=== PATIENT | male | born 1945 | race Caucasian/White ===

== ENCOUNTER → 2019-10-17 14:29 | Outpatient (CLI) | payer MEDICARE, OTHER, SELFPAY ==
--- NOTE | 2019-10-17 14:38 | DI.CT.S_ITS ---
PROCEDURE: CT SINUS SCREEN WO CON INDICATIONS: Other chronic sinusitis TECHNIQUE: Noncontrast 3.0 mm axial images acquired from the frontal sinuses to the mid-sella, with coronal and sagittal reformats. For radiation dose reduction, the following was used: automated exposure control, adjustment of mA and/or kV according to patient size. COMPARISON: None. FINDINGS: Image quality: Excellent. Diffuse bilateral ethmoid sinus mucosal thickening. Sphenoid sinuses appear clear. [id number] left maxillary sinus disease. There is minimal fluid within the right maxillary antrum, and mild right maxillary sinus disease. Frontal sinuses appear clear Mastoid air cells appear clear. Ostiomeatal Complexes: Ostiomeatal complexes are patent. No Wendy cells. Miscellaneous: Visualized intra-orbital contents are normal. No lore bullosa or paradoxical turbinate curvature. There is a small mucous retention cyst seen within the roof of the right maxillary antrum near the ostiomeatal complex image 22/4 Mild leftward nasal septal deviation. Probably chronic bilateral nasal bone fractures IMPRESSION: Diffuse bilateral ethmoid and maxillary sinus disease as detailed above Bilateral nasal bone fractures, likely chronic Dictated by: Jd Hopper M.D. on 10/17/2019 at 15:45 Approved by: Jd Hopper M.D. on 10/17/2019 at 15:49
== END ==
PROVIDERS: Referring Provider Otolaryngology; Visit Provider Otolaryngology
DX: J32.8 Other chronic sinusitis (principal); S02.2XXA Fracture of nasal bones, initial encounter for closed fracture; J34.2 Deviated nasal septum
CPT/HCPCS: 70486

== ENCOUNTER 2021-11-09 22:04 | Emergency (ER) | payer MEDICARE, OTHER, SELFPAY ==
[2021-11-09] VITALS (7 sets, daily range): BP systolic 148–195; BP diastolic 67–91; PULSE 61–83; RESP 15–19; TEMP 36.7; O2SAT 92–95; BMI 28.8
--- NOTE | 2021-11-09 22:18 | DI.RAD.S_ITS ---
PROCEDURE: XR CHEST 2V INDICATIONS: SOB TECHNIQUE: 2 views of the chest were acquired. COMPARISON: None. FINDINGS: Surgical changes and devices: None. Lungs and pleura: Lungs are clear. No pleural effusions or pneumothorax. Mediastinum: Mediastinal contours are normal. Heart size is normal. Bones and chest wall: No suspicious bony abnormalities. Soft tissues appear unremarkable. IMPRESSION: No acute pulmonary process. Dictated by: Anika Chairez M.D. on 11/09/2021 at 23:30 Approved by: Anika Chairez M.D. on 11/09/2021 at 23:31
--- NOTE | 2021-11-09 22:23 | ED_ITS ---
HPI - Chest Pain General Chief Complaint: Chest Pain Stated Complaint: pain in left chest area, sylvain during cough Time Seen by Provider: 11/09/21 22:06 Source: patient Mode of arrival: Ambulatory Limitations: no limitations History of Present Illness HPI narrative: 76M former smoker with a history of pneumonia presents with the chief complaint of a crampy and persistent left anterior chest pain that started this morning. This pain is provoked by cough and movement of his torso as well as deep breath. He denies any provocation by exertion or ambulation. He denies nausea, vomiting, or SOB. He has had no fever or chills. He states that he has a chronic cough and this is no more intense or frequent than normal. He always spits up whitish sputum and denies any blood, brown or off colored appearance to his sputum currently. His pain does not radiate and he noticed it rather suddenly this morning when he coughed. He states it is a 5/ currently Related Data Home Medications Medication Instructions Recorded Confirmed CA PANTOTHENATE/FOLIC ACID/VIT 1 tab PO QDAY #0 10/27/12 (MULTIVITAMIN) Fish Oil 1,000 mg PO QDAY #0 10/27/12 Terazosin HCl (TERAZOSIN 5 mg PO QDAY #0 10/27/12 HYDROCHLORIDE) dapsone 25 mg tablet 25 mg NG #0 10/27/12 Previous Rx's Medication Instructions Recorded albuterol sulfate 90 mcg/actuation 1 puff INH QID #8 gm 12/13/16 aerosol inhaler (Ventolin HFA) doxycycline hyclate 100 mg tablet 100 mg PO BID #28 tab 12/13/16 amlodipine 5 mg tablet 5 mg PO DAILY #30 tab 11/10/21 lidocaine 5 % topical patch 1 patch TOPICAL DAILY PRN #15 ea 11/10/21 (Lidoderm) Allergies Allergy/AdvReac Type Severity Reaction Status Date / Time No Known Drug Allergies Allergy Verified 11/09/21 22:23 Review of Systems Review of Systems Narrative: GENERAL: Denies chills, fatigue, malaise, fever, sweats. HEENT: Denies sinus pain, ear pain, sore throat, difficulty swallowing, dizziness. RESPIRATORY: See HPI CARDIOVASCULAR: See HPI GASTROINTESTINAL: Denies nausea, vomiting, abdominal pain, diarrhea, constipation, melena. : Denies dysuria, frequency, incontinence, hematuria, urinary retention. MUSCULOSKELETAL: denies weakness, joint pain, or bony pain SKIN: Denies rash, skin lesions, or other NEUROLOGIC: Denies weakness, headache, numbness, change in speech, confusion, seizures, incoordination. PSYCHIATRIC: No concerning psychosocial issues. 12 point review of systems is negative except for those stated above Patient History Social History Smoking Status: Former smoker Smoking Status: Former smoker alcohol intake frequency: 0-2 drinks per day Substance Use Type: does not use Exam Narrative Exam Narrative: GENERAL: [76 year old patient appears stated age. Well-developed patient, in mild distress. HEAD: Atraumatic. Normocephalic. EYES: Pupils equal round and reactive. Extraocular motions intact. No scleral icterus. No injection or drainage. ENT: Nose without bleeding, purulent drainage. Throat without erythema, tonsillar hypertrophy or exudate. Airway patent. NECK: Trachea midline. Non tender CARDIOVASCULAR: Regular rate and rhythm without murmurs, gallops, or rubs. No obvious provocation on palpation of chest wall RESPIRATORY: Decreased breath sounds bilaterally with prolonged expiratory phase, no wheezes, rales or rhonchi GASTROINTESTINAL: Abdomen soft, non-tender, nondistended. EXTREMITIES: No edema or joint tenderness. BACK: Nontender without deformity or crepitance. No flank tenderness. NEURO: AOx3. SKIN: No rash or erythema of visible areas Initial Vital Signs Initial Vital Signs: Vital Signs Temperature 98.0 F 11/09/21 22:10 Pulse Rate 72 11/09/21 22:10 Respiratory Rate 17 11/09/21 22:10 Blood Pressure 195/91 H 11/09/21 22:10 Pulse Oximetry 92 11/09/21 22:10 Course Orders Ordered: ED Orders 11/09/21 22:15 C-Reactive Protein Quant Stat Complete Blood Count AUTO DIFF Stat Comprehensive Metabolic Panel Stat Erythrocyte Sedimentation Rate Stat Lipase Stat Magnesium Stat NT-proBNP (BNP-Adult 18+) Stat Prothrombin Time INR Stat Troponin & CK Cardiac Panel Stat 11/09/21 22:18 XR chest 2V Stat 11/09/21 22:20 COVID19 -Nasal swab/Pre-Proc Stat 11/10/21 00:00 D Dimer Stat EKG-12 Lead Stat 11/10/21 00:10 Trop I [Troponin I] Stat Nitroglycerin (Nitroglycerin 0.4 Mg Sl Tab) 0.4 mg SL [id number] PRN PRN Reason: Chest Pain Last Admin: 11/09/21 22:46 Dose: 0.4 mg Documented by: ATAYLOR Discontinued Medications Ketorolac Tromethamine (Ketorolac 30 Mg/Ml Vial) 10 mg IV NOW ONE Stop: 11/09/21 23:04 Last Admin: 11/09/21 23:12 Dose: 10 mg Documented by: ALLYSON Lidocaine (Lidocaine Patch 1 Each Adh..Patch) 1 each TOP NOW ONE Stop: 11/10/21 00:04 Last Admin: 11/10/21 00:08 Dose: 1 each Documented by: KAEL Reevaluation(s) Reevaluation #1: patient given NG sublingual, no change in character or severity of chest pain, however BP is down to 160s. Vital Signs Vital signs: Vital Signs - 8 hr 11/09/21 22:10 11/09/21 22:30 11/09/21 22:41 Temperature 98.0 F Pulse Rate 83 69 75 Respiratory Rate 17 15 16 Blood Pressure 195/91 H 191/81 H 190/78 H Pulse Oximetry 95 94 95 11/09/21 22:52 11/09/21 23:00 11/09/21 23:14 Temperature Pulse Rate 69 69 64 Respiratory Rate 18 19 16 Blood Pressure 165/70 H 174/75 H Pulse Oximetry 93 93 92 11/09/21 23:30 Temperature Pulse Rate 61 Respiratory Rate 15 Blood Pressure 148/67 H Pulse Oximetry 94 MDM - Chest Pain Lab Data Result diagrams: 11/09/21 22:15 11/09/21 22:15 Labs: Lab Results 11/09/21 11/09/21 11/09/21 Range/Units 22:15 22:15 22:15 WBC 7.6 (4.5-11.0) X10^3/uL RBC 5.40 (4.5-5.9) X10^6/uL Hgb 16.5 (13.5-17.5) g/dL Hct 47.6 (41-53) % MCV 88.1 (80-100) fL MCH 30.6 (26-34) PG MCHC 34.7 (30-36) % RDW 13.5 (11.6-14.8) % Plt Count 255 (150-400) X10^3/uL Neut % (Auto) 62.5 (50-75) % Lymph % (Auto) 20.5 L (25-40) % [facility] % (Auto) 10.1 (3-14) % Eos % (Auto) 5.8 H (2-4) % Baso % (Auto) 1.1 (0-2) % Neut # (Auto) 4700 (5625-3113) /uL Lymph # (Auto) 1600 (7474-5353) /uL [facility] # (Auto) 800 (0-900) /uL Eos # (Auto) 400 (0-450) /uL Baso # (Auto) 100 (0-100) /uL ESR (0-15) MM/HR PT 11.6 (10.1-12.7) SECONDS INR 1.0 (0.9-1.3) D-Dimer (<230) ng/mL Sodium 137 (137-145) mmol/L Potassium 4.2 (3.4-5.1) mmol/L Chloride 107 (98-107) mmol/L Carbon Dioxide 22 (22-32) mmol/L BUN 19 (9-20) mg/dL Creatinine 1.23 (0.66-1.25) mg/dL Estimated GFR 56.9 L (>60) mL/min BUN/Creatinine Ratio 15.4 (6-22) Glucose 128 H (80-110) mg/dL Calcium 9.3 (8.4-10.2) mg/dL Magnesium 2.1 (1.6-2.3) mg/dL Total Bilirubin 0.5 (0.2-1.3) mg/dL AST 35 (17-59) IU/L ALT 27 (<50) IU/L Alkaline Phosphatase 79 (38-126) U/L Total Creatine Kinase 85 (55-170) U/L CK-MB (CK-2) TNP CK-MB (CK-2) Rel Index TNP Troponin I < 0.012 (0.01-0.034) ng/mL C-Reactive Protein (<1.0) mg/dL NT-Pro-B Natriuret Pep 28 (<450) pg/mL Total Protein 7.8 (6.3-8.2) g/dL Albumin 4.4 (3.5-5.0) g/dL Globulin 3.4 (1.7-4.1) g/dL Albumin/Globulin Ratio 1.3 (1.0-2.8) Lipase 61 (23-300) U/L SARS-CoV-2 (PCR) (Negative) 11/09/21 11/09/21 11/09/21 Range/Units 22:15 22:15 22:15 WBC (4.5-11.0) X10^3/uL RBC (4.5-5.9) X10^6/uL Hgb (13.5-17.5) g/dL Hct (41-53) % MCV (80-100) fL MCH (26-34) PG MCHC (30-36) % RDW (11.6-14.8) % Plt Count (150-400) X10^3/uL Neut % (Auto) (50-75) % Lymph % (Auto) (25-40) % [facility] % (Auto) (3-14) % Eos % (Auto) (2-4) % Baso % (Auto) (0-2) % Neut # (Auto) (3877-2561) /uL Lymph # (Auto) (1167-8886) /uL [facility] # (Auto) (0-900) /uL Eos # (Auto) (0-450) /uL Baso # (Auto) (0-100) /uL ESR 2 (0-15) MM/HR PT (10.1-12.7) SECONDS INR (0.9-1.3) D-Dimer < 230 (<230) ng/mL Sodium (137-145) mmol/L Potassium (3.4-5.1) mmol/L Chloride (98-107) mmol/L Carbon Dioxide (22-32) mmol/L BUN (9-20) mg/dL Creatinine (0.66-1.25) mg/dL Estimated GFR (>60) mL/min BUN/Creatinine Ratio (6-22) Glucose (80-110) mg/dL Calcium (8.4-10.2) mg/dL Magnesium (1.6-2.3) mg/dL Total Bilirubin (0.2-1.3) mg/dL AST (17-59) IU/L ALT (<50) IU/L Alkaline Phosphatase (38-126) U/L Total Creatine Kinase (55-170) U/L CK-MB (CK-2) CK-MB (CK-2) Rel Index Troponin I (0.01-0.034) ng/mL C-Reactive Protein < 0.5 (<1.0) mg/dL NT-Pro-B Natriuret Pep (<450) pg/mL Total Protein (6.3-8.2) g/dL Albumin (3.5-5.0) g/dL Globulin (1.7-4.1) g/dL Albumin/Globulin Ratio (1.0-2.8) Lipase (23-300) U/L SARS-CoV-2 (PCR) (Negative) 11/09/21 11/10/21 Range/Units 22:20 00:10 WBC (4.5-11.0) X10^3/uL RBC (4.5-5.9) X10^6/uL Hgb (13.5-17.5) g/dL Hct (41-53) % MCV (80-100) fL MCH (26-34) PG MCHC (30-36) % RDW (11.6-14.8) % Plt Count (150-400) X10^3/uL Neut % (Auto) (50-75) % Lymph % (Auto) (25-40) % [facility] % (Auto) (3-14) % Eos % (Auto) (2-4) % Baso % (Auto) (0-2) % Neut # (Auto) (6596-7190) /uL Lymph # (Auto) (0240-7292) /uL [facility] # (Auto) (0-900) /uL Eos # (Auto) (0-450) /uL Baso # (Auto) (0-100) /uL ESR (0-15) MM/HR PT (10.1-12.7) SECONDS INR (0.9-1.3) D-Dimer (<230) ng/mL Sodium (137-145) mmol/L Potassium (3.4-5.1) mmol/L Chloride (98-107) mmol/L Carbon Dioxide (22-32) mmol/L BUN (9-20) mg/dL Creatinine (0.66-1.25) mg/dL Estimated GFR (>60) mL/min BUN/Creatinine Ratio (6-22) Glucose (80-110) mg/dL Calcium (8.4-10.2) mg/dL Magnesium (1.6-2.3) mg/dL Total Bilirubin (0.2-1.3) mg/dL AST (17-59) IU/L ALT (<50) IU/L Alkaline Phosphatase (38-126) U/L Total Creatine Kinase (55-170) U/L CK-MB (CK-2) CK-MB (CK-2) Rel Index Troponin I < 0.012 (0.01-0.034) ng/mL C-Reactive Protein (<1.0) mg/dL NT-Pro-B Natriuret Pep (<450) pg/mL Total Protein (6.3-8.2) g/dL Albumin (3.5-5.0) g/dL Globulin (1.7-4.1) g/dL Albumin/Globulin Ratio (1.0-2.8) Lipase (23-300) U/L SARS-CoV-2 (PCR) Negative (Negative) Imaging Data Chest x-ray: Radiologist's Impression: Launch?[place] [address] XRay Report Signed Patient: Petros Bass MR#: [id number] : 1945 Acct:[id number] Age/Sex: 76 / M Date of Service: 11/09/21 Loc: ED Accession Number: [id number] ?? Procedure: XR chest 2V Ordering Provider: Linden Bates D.O. PROCEDURE:? XR CHEST 2V ? INDICATIONS:? SOB ? TECHNIQUE:? 2 views of the chest were acquired.? ? COMPARISON:? None. ? FINDINGS:? ? Surgical changes and devices:? None.? ? Lungs and pleura:? Lungs are clear.? No pleural effusions or pneumothorax.? ? Mediastinum:? Mediastinal contours are normal.? Heart size is normal.? ? Bones and chest wall:? No suspicious bony abnormalities.? Soft tissues appear unremarkable.? ? IMPRESSION:? No acute pulmonary process. ? ? Dictated by: Anika Chairez M.D. on 11/09/2021 at 23:30 ? ? Approved by: Anika Chairez M.D. on 11/09/2021 at 23:31 ? MDM Narrative Medical decision making narrative: Multiple causes of chest pain considered including AL, PE, pneumothorax, pneumon ia, aortic dissection, and pleurisy. Patient reports no radiation, no diaphoresis, no provocation with exertion, and no vomiting. Multiple EKGs showed no occlusive findings and troponin x2 is unremarkable. Pain is sharp and reproducible with motion and deep breath, it is significantly better if not completely gone after anti-inflammatories and Lidoderm. Pulmonary embolism considered but thought unlikely given negative D-dimer. Patient given extensive return precautions and questions answered to his apparent satisfaction Discharge Plan Departure Patient Disposition: Home Clinical Impression: Atypical chest pain, Hypertension Instructions: Essential Hypertension, DI for Atypical Chest Pain Activity Restrictions/Additional Instructions: *You have been diagnosed with [atypical chest pain. As we discussed your history and physical exam as well as labs, EKGs and x-rays are very reassuring. There is no evidence of heart attack, blood clot or pneumonia. *What to do: *Please continue to take your regular medications as directed. [ x] New medication prescriptions sent to your pharmacy: [[facility] ] [ ] New medication written as a paper prescription [ ] No new medications given *Please follow up with your primary care provider in 2-3 days, call for an appointment. Let them know you were seen in the Emergency Department and that we ask that you be seen in follow up. We will electronically transmit a record of today's note if your PCP is in our system *If you do not have a primary care provider please contact the [facility] Resource line at [phone]. They will ask some questions about your medical history and help get you set up with a doctor in the community. *Return to Emergency Department if you should have any new, worsening or concerning symptoms, such as [fever greater than 101 F, shaking chills, worsening pain, persistent vomiting or other bothersome symptoms] Prescriptions: New amlodipine 5 mg tablet 5 mg PO DAILY Qty: 30 0RF lidocaine [Lidoderm] 5 % adhesive patch,medicated 1 patch topical DAILY PRN (Reason: pain (scale score 4-6)) Qty: 15 0RF Rx Instructions: leave on most painful area for 12 hrs No Action dapsone 25 MG tablet 25 mg NG Qty: 0 0RF CA PANTOTHENATE/FOLIC ACID/VIT (MULTIVITAMIN) 1 tab PO QDAY Qty: 0 0RF Fish Oil 1,000 mg PO QDAY Qty: 0 0RF Terazosin HCl (TERAZOSIN HYDROCHLORIDE) 5 mg PO QDAY Qty: 0 0RF albuterol sulfate [Ventolin HFA] 90 MCG/PUFF HFA aerosol inhaler 1 puff INH QID Qty: 8 1RF doxycycline hyclate 100 MG tablet 100 mg PO BID Qty: 28 0RF Referrals: Jimmie Sanders MD [Primary Care Provider] -
[2021-11-09 22:28] LABS: Add Manual Diff / Slide Review NO; Basophils Absolute Auto 100 /uL (0-100); Basophils Percent Auto 1.1 % (0-2); Eosinophils Absolute Auto 400 /uL (0-450); Eosinophils Percent Auto 5.8 % (2-4); Hematocrit 47.6 % (41-53); Hemoglobin 16.5 g/dL (13.5-17.5); Lymphocytes Absolute Auto 1600 /uL (1100-4500); Lymphocytes Percent Auto 20.5 % (25-40); Mean Corpuscular HGB Conc 34.7 % (30-36); Mean Corpuscular Hemoglobin 30.6 PG (26-34); Mean Corpuscular Volume 88.1 fL (80-100); Monocytes Absolute Auto 800 /uL (0-900); Monocytes Percent Auto 10.1 % (3-14); Neutrophils Absolute Auto 4700 /uL (1500-7000); Neutrophils Percent Auto 62.5 % (50-75); Platelet Count 255 X10^3/uL (150-400); Red Cell Distribution Width 13.5 % (11.6-14.8); White Blood Cell Count 7.6 X10^3/uL (4.5-11.0)
[2021-11-09 22:33] LABS: Prothrombin Time 11.6 SECONDS (10.1-12.7)
[2021-11-09 22:39] LABS: Alanine Aminotransferase 27 IU/L (<50); Albumin 4.4 g/dL (3.5-5.0); Albumin Globulin Ratio 1.3 (1.0-2.8); Alkaline Phosphatase 79 U/L (38-126); Aspartate Aminotransferase 35 IU/L (17-59); BUN Creatinine Ratio 15.4 (6-22); Bilirubin Total 0.5 mg/dL (0.2-1.3); Blood Urea Nitrogen 19 mg/dL (9-20); Calcium 9.3 mg/dL (8.4-10.2); Carbon Dioxide 22 mmol/L (22-32); Chloride 107 mmol/L (98-107); Creatine Kinase 85 U/L (55-170); Estimated Glomerular Filt Rate 56.9 mL/min (>60); Globulin 3.4 g/dL (1.7-4.1); Glucose 128 mg/dL (80-110); HEMOLYSIS 31 (0-50); Lipase 61 U/L (23-300); Magnesium 2.1 mg/dL (1.6-2.3); Potassium 4.2 mmol/L (3.4-5.1); Sodium 137 mmol/L (137-145); Total Protein 7.8 g/dL (6.3-8.2)
[2021-11-09 22:41] LABS: C-Reactive Protein Quant < 0.5 mg/dL (<1.0)
[2021-11-09 22:45] LABS: COVID19 -Nasal RAPID Negative (Negative)
[2021-11-09] MEDS: NITROGLYCERIN 0.4 MG SL TAB SL (22:46)
[2021-11-09 22:51] LABS: NT-proBNP (BNP-Adult 18+) 28 pg/mL (<450); Troponin I < 0.012 ng/mL (0.01-0.034)
[2021-11-09 22:55] LABS: Erythrocyte Sedimentation Rate 2 MM/HR (0-15)
[2021-11-09] MEDS: KETOROLAC 30 MG/ML VIAL 10 MG IV (23:12)
[2021-11-10] VITALS: BP 157/72; PULSE 64; RESP 16; O2SAT 94
[2021-11-10] MEDS: LIDOCAINE PATCH 1 EACH ADH..PATCH TOP (00:08)
[2021-11-10 00:23] LABS: D Dimer < 230 ng/mL (<230)
[2021-11-10 00:30] VITALS: BP 168/72; PULSE 59; RESP 13; O2SAT 94
[2021-11-10 00:44] LABS: Troponin I < 0.012 ng/mL (0.01-0.034)
== END 2021-11-10 01:02 | disposition home or self-care (01) ==
PROVIDERS: Emergency Provider Emergency Medicine; PCP Specialist
DX: R07.89 Other chest pain (principal); I10 Essential (primary) hypertension; Z20.822 Contact with and (suspected) exposure to COVID-19; Z87.891 Personal history of nicotine dependence
CPT/HCPCS: 36415; 71046; 80053; 82550; 83690; 83735; 83880; 84484; 85025; 85379; 85610; 85651; 86140; 87635; 93005; 96374; 99284; C9803; J1885

== ENCOUNTER 2022-10-21 07:26 | Emergency (ER) | payer MEDICARE, OTHER, SELFPAY ==
[2022-10-21 07:38] VITALS: BP 178/74; PULSE 62; RESP 18; TEMP 36.5; O2SAT 99; BMI 27.3
--- NOTE | 2022-10-21 07:41 | ED_ITS ---
HPI - Neuro Symptoms/Deficit General Chief Complaint: Neuro Symptoms/Deficit Stated Complaint: sent by [facility] numbness/tingleing in RT arm & hand Time Seen by Provider: 10/21/22 07:41 Source: patient, RN notes reviewed and old records reviewed Mode of arrival: Ambulatory Limitations: no limitations History of Present Illness HPI Narrative: This is a 77-year-old male with history of hypertension and urinary difficult ies. Patient presents today with complaint of his right arm feeling funny for the past 3 days. Patient notes he had some atypical swelling in his feet about 5 days ago he took off his socks which he normally wears all the time and it went away. Patient has not had any more swelling. He states he woke up 3 days ago noticing his right arm felt sort of numb or tingling. He states it almost feels sort of full in his. He denies any weakness, states it is not quite a pins and needle sensation. He denies any headaches, he has chronic vision changes which he describes as colitis scope vision that is intermittent normally, he denies any facial droop or speech changes. No numbness tingling or weakness elsewhere in other extremities. No weakness in any of his extremities. Had normal gait and movement. He denies chest pain, no shortness of breath, no nausea or vomiting, no incontinence, no other urinary or GI symptoms. Patient states he is no longer on a blood thinner daily. He takes amlodipine 10 mg daily and doxazosin 4 mg daily. He denies any prior surgeries. No known drug allergies. He states he quit smoking 10 years ago, quit alcohol in the , no illicit. Dr. Vickers is his primary care. Patient presents today after being sent over from the walk-in clinic, patient went to be evaluated as his symptoms have not resolved. Patient notes no prior blood clots or family history of clotting. Related Data Home Medications Medication Instructions Recorded Confirmed CA PANTOTHENATE/FOLIC ACID/VIT 1 tab PO QDAY ##0 10/27/12 (MULTIVITAMIN) Fish Oil 1,000 mg PO QDAY ##0 10/27/12 Terazosin HCl (TERAZOSIN 5 mg PO QDAY ##0 10/27/12 HYDROCHLORIDE) dapsone 25 mg tablet 25 mg NG ##0 10/27/12 Previous Rx's Medication Instructions Recorded albuterol sulfate 90 mcg/actuation 1 puff INH QID ##8 12/13/16 aerosol inhaler (Ventolin HFA) doxycycline hyclate 100 mg tablet 100 mg PO BID #28 tabs 12/13/16 amlodipine 5 mg tablet 5 mg PO DAILY #30 tabs 11/10/21 lidocaine 5 % topical patch 1 patch topical DAILY PRN pain 11/10/21 (Lidoderm) (scale score 4-6) #15 ea Allergies Allergy/AdvReac Type Severity Reaction Status Date / Time No Known Drug Allergies Allergy Verified 11/09/21 22:23 Review of Systems Review of Systems ROS Unobtainable: All systems reviewed & are unremarkable except as noted in HPI and below Patient History Social History Smoking Status: Former smoker Smoking Status: Former smoker alcohol intake frequency: 0-2 drinks per day Substance Use Type: does not use Exam Narrative Exam Narrative: GEN: well nourished, well appearing male, alert and oriented x 3, patient appears to be in mild distress. HEENT: Atraumatic, pupils are equal round reactive to light, extraocular movements are intact, nares are clear, Throat is clear without any exudates, erythema, tonsillar enlargement or uvular deviation, no facial droop. HEART: Regular rate and rhythm without murmur, clicks, rubs. Pulses are equal in upper and lower extremities, no swelling bilateral upper and lower extremities. LUNGS:Lungs clear to auscultation, no wheezes, rales, crackles, chest moves symmetrically ABD:bowel sounds normal, soft, non-tender, no guarding, rebound, rigidity, no masses noted, no hepatosplenomegaly :No CVA tenderness MSCL: Non-tender, no muscle atrophy, muscles strength 5/5 upper and lower extremities, full range of motion, data services developer are equal bilateral upper extremities, patient has normal push-pull with strength, full range of motion of bilateral upper extremities. Normal gait NEURO:CN 2-12 intact, sensation normal bilateral upper and lower extremities, patient states no change to sensation he just feel like it feels different but does not appreciate any change with palpation or touch, finger nose finger test normal, heel rose test normal SKIN: No rash, erythema or other skin changes noted. Initial Vital Signs Initial Vital Signs: Vital Signs Temperature 97.7 F 10/21/22 07:38 Pulse Rate 62 10/21/22 07:38 Respiratory Rate 18 10/21/22 07:38 Blood Pressure 178/74 H 10/21/22 07:38 Pulse Oximetry 99 10/21/22 07:38 Oxygen Delivery Method Room Air 10/21/22 07:38 Scores NIH Stroke Scale Level of Conciousness: Alert, keenly responsive Ask month/age: Answers both questions correctly. Open/close eyes, close hand: Performs both tasks correctly Best gaze horizontal: Normal Visual hanks: No visual loss Facial palsy: Normal symetrical movement Left arm drift: No drift for full 10 sec Right arm drift: No drift for full 10 sec Left leg drift: No drift for full 5 sec Right leg drift: No drift for full 5 sec Limb ataxia: Absent Sensory on face/arms/legs: Normal, no sensory loss Best language: No aphasia, normal Dysarthria: Normal Extinction or inattention: No abnormality Total NIH Stroke scale score: 0 Course Orders Ordered: ED Orders 10/21/22 07:40 Complete Blood Count AUTO DIFF Stat Comprehensive Metabolic Panel Stat PTT Partial Thromboplastin Chris Stat Prothrombin Time INR Stat Troponin & CK Cardiac Panel Stat 10/21/22 07:53 CT head/brain wo con Stat 10/21/22 07:57 EKG-12 Lead Stat Vital Signs Vital signs: Vital Signs - 8 hr 10/21/22 07:38 10/21/22 07:46 10/21/22 08:00 Temperature 97.7 F Pulse Rate 62 58 L 54 L Respiratory Rate 18 22 12 Blood Pressure 178/74 H Pulse Oximetry 99 98 97 Oxygen Delivery Method Room Air 10/21/22 08:01 10/21/22 08:01 10/21/22 08:30 Temperature Pulse Rate 55 L 47 L Respiratory Rate 16 18 Blood Pressure 159/71 H Pulse Oximetry 96 100 Oxygen Delivery Method MDM - Neuro Symptoms/Deficit Lab Data 10/21/22 07:40 10/21/22 07:40 Labs: Lab Results 10/21/22 10/21/22 10/21/22 Range/Units 07:40 07:40 07:40 WBC 5.8 (4.5-11.0) X10^3/uL RBC 4.70 (4.5-5.9) X10^6/uL Hgb 14.6 (13.5-17.5) g/dL Hct 42.1 (41-53) % MCV 89.6 (80-100) fL MCH 31.1 (26-34) PG MCHC 34.7 (30-36) % RDW 13.7 (11.6-14.8) % Plt Count 227 (150-400) X10^3/uL Neut % (Auto) 57.7 (50-75) % Lymph % (Auto) 26.5 (25-40) % Rankin % (Auto) 10.4 (3-14) % Eos % (Auto) 4.7 H (2-4) % Baso % (Auto) 0.7 (0-2) % Neut # (Auto) 3300 (6644-4918) /uL Lymph # (Auto) 1500 (1362-3807) /uL Rankin # (Auto) 600 (0-900) /uL Eos # (Auto) 300 (0-450) /uL Baso # (Auto) 0 (0-100) /uL PT 12.6 (10.1-12.7) SECONDS INR 1.1 (0.9-1.3) APTT 29 (26-36) SECONDS Sodium 139 (137-145) mmol/L Potassium 3.6 (3.4-5.1) mmol/L Chloride 103 (98-107) mmol/L Carbon Dioxide 28 (22-32) mmol/L BUN 18 (9-20) mg/dL Creatinine 0.89 (0.66-1.25) mg/dL Estimated GFR > 60 (>60) mL/min BUN/Creatinine Ratio 20.2 (6-22) Glucose 87 (80-110) mg/dL Calcium 8.9 (8.4-10.2) mg/dL Total Bilirubin 0.7 (0.2-1.3) mg/dL AST 24 (17-59) IU/L ALT 22 (<50) IU/L Alkaline Phosphatase 100 (38-126) U/L Total Creatine Kinase 41 L (55-170) U/L CK-MB (CK-2) TNP CK-MB (CK-2) Rel Index TNP Troponin I < 0.012 (0.01-0.034) ng/mL Total Protein 7.3 (6.3-8.2) g/dL Albumin 4.2 (3.5-5.0) g/dL Globulin 3.1 (1.7-4.1) g/dL Albumin/Globulin Ratio 1.4 (1.0-2.8) Point of Care Testing Glucose POC [address] scan - head: Radiologist's Impression: [facility] [place] [id number] ReportSigned Patient: Adama Goode AMR#: [id number]: 9Acct:[id number]/Sex: 71 / MDate of Service: 10/21/22Loc: EDAccession Number: [id number]? ? Procedure: XR chest 1V Ordering Provider: Anisha Silva D.O. PROCEDURE:? XR CHEST 1V ? INDICATIONS:? chest pain/fever/?pneumonia ? TECHNIQUE:? One view of the chest was acquired.? ? COMPARISON:? [facility], CR, XR CHEST 1V, 04/09/2022, 20:49. ? FINDINGS:? ? Surgical changes and devices:? None.? ? Lungs and pleura:? Lungs are clear.? No pleural effusions or pneumothorax.? ? Mediastinum:? Mediastinal contours appear normal.? Heart size is normal.? ? Bones and chest wall:? No suspicious bony lesions.? Overlying soft tissues appear unremarkable.? ? IMPRESSION:? No evidence acute pulmonary process. ? ? ? Dictated by: Preston Jasso M.D. on 10/21/2022 at 7:56? ?? Approved by: Preston Jasso M.D. on 10/21/2022 at 7:57?? ECG Data Attestation: I personally reviewed and interpreted this ECG as follows: Prior ECG tracings: available for review Interpretation: Sinus bradycardia with sinus arrhythmia, rate of 50 NH 198 QRS of 94 QTC of 0 6. Patient has prior from 11/04 which appears similar patient lateral leads to have some J-point elevation appears similar on old EKG as well. MDM Narrative Medical decision making narrative: This is a 77-year-old male who presents with sensation that his right upper extremity feels different which has been constant and persistent since he woke up 3 days ago, patient has not NIH of 0 he actually does not have sensation change with palpation or light touch, he has normal strength, discussed with patient this could be secondary to a nerve radiculopathy but he does not have any pain. He is hypertensive and based on his age has some risk factors for stroke. Patient head CT, labs are negative. Patient's overall exam is reassuring to rule out neurologic cause. Discussed with patient he did stop his aspirin on the recommendation of his physician but he does not know why, he states he just told him to stop. We discussed this may have been for fall risk versus other reasons he is not had bleeding issues so discussed continuing baby aspirin daily. We did discuss trying to get an MRI today but will likely be this afternoon, patient does not wish to stay but we discussed this is only way to totally rule in or out stroke. Patient elects to return home aware of this, discussed continue the aspirin his other medications and follow up with his physician as or other potential causes he does not have any true numbness or other changes. Stroke Core Measures Exclusion Criteria TPA in CVA: Symptom Onset >3 or 4.5 Hours Discharge Plan Departure Patient Disposition: Home Clinical Impression: Paresthesia of right upper limb Activity Restrictions/Additional Instructions: Please follow-up with your physician to discuss having an MRI of your brain or further workup as needed. Your workup today was overall reassuring. I would recommend an aspirin 81 mg once daily with your regular medications until you follow-up with your physician. Please return for new weakness numbness loss of sensation, severe headaches, varner dden vision changes, difficulty with speech, new swelling of your arm, pain of your arm or neck or other new or concerning changes. Prescriptions: No Action dapsone 25 MG tablet 25 mg NG Qty: 0 CA PANTOTHENATE/FOLIC ACID/VIT (MULTIVITAMIN) 1 tab PO QDAY Qty: 0 Fish Oil 1,000 mg PO QDAY Qty: 0 Terazosin HCl (TERAZOSIN HYDROCHLORIDE) 5 mg PO QDAY Qty: 0 albuterol sulfate [Ventolin HFA] 90 MCG/PUFF HFA aerosol inhaler 1 puff INH QID Qty: 8 1RF doxycycline hyclate 100 MG tablet 100 mg PO BID Qty: 28 0RF amlodipine 5 mg tablet 5 mg PO DAILY Qty: 30 0RF lidocaine [Lidoderm] 5 % adhesive patch,medicated 1 patch topical DAILY PRN (Reason: pain (scale score 4-6)) Qty: 15 0RF Rx Instructions: leave on most painful area for 12 hrs Referrals: Zack Vickers DO [Primary Care Provider] - Stand Alone Forms: Patient Portal/API
[2022-10-21 07:46] VITALS: PULSE 58; RESP 22; O2SAT 98
--- NOTE | 2022-10-21 07:53 | DI.CT.S_ITS ---
PROCEDURE: CT HEAD/BRAIN WO CON INDICATIONS: left arm feels funny TECHNIQUE: Noncontrast 4.5 mm thick angled axial sections acquired from the foramen magnum to the vertex, with coronal and sagittal reformats. For radiation dose reduction, the following was used: automated exposure control, adjustment of mA and/or kV according to patient size. COMPARISON: None. FINDINGS: Image quality: Excellent. CSF spaces: Basal cisterns are patent. No extra-axial fluid collections. The ventricles are symmetric in size and shape. Brain: No intracranial bleeds or masses. There is cerebral volume loss for age, with resultant ventricular and sulcal prominence. There are periventricular and deep white matter chronic small vessel ischemic changes. There is intracranial internal carotid artery atherosclerosis. Skull and face: Calvarium and visualized facial bones appear intact, without suspicious lesions. Sinuses: Inferior left frontal sinus mucosal thickening and minimal air-fluid level. Extensive previous nasal sinus surgery with resection of the uncinate processes and medial nasal antral windows and trimming of the middle nasal turbinates and partial bilateral ethmoidectomies. Patchy ethmoid opacification. IMPRESSION: 1. Age-related volume loss and small vessel ischemic change. 2. No evidence acute intracranial abnormality. 3. Extensive previous nasal sinus surgeries. 4. Mild acute on extensive chronic sinusitis. Dictated by: Preston Jasso M.D. on 10/21/2022 at 8:38 Approved by: Preston Jasso M.D. on 10/21/2022 at 8:40
[2022-10-21 08:00] VITALS: PULSE 54; RESP 12; O2SAT 97
[2022-10-21 08:01] VITALS: BP 159/71; PULSE 55; RESP 16; O2SAT 96
[2022-10-21 08:07] LABS: Add Manual Diff / Slide Review NO; Basophils Absolute Auto 0 /uL (0-100); Basophils Percent Auto 0.7 % (0-2); Eosinophils Absolute Auto 300 /uL (0-450); Eosinophils Percent Auto 4.7 % (2-4); Hematocrit 42.1 % (41-53); Hemoglobin 14.6 g/dL (13.5-17.5); Lymphocytes Absolute Auto 1500 /uL (1100-4500); Lymphocytes Percent Auto 26.5 % (25-40); Mean Corpuscular HGB Conc 34.7 % (30-36); Mean Corpuscular Hemoglobin 31.1 PG (26-34); Mean Corpuscular Volume 89.6 fL (80-100); Monocytes Absolute Auto 600 /uL (0-900); Monocytes Percent Auto 10.4 % (3-14); Neutrophils Absolute Auto 3300 /uL (1500-7000); Neutrophils Percent Auto 57.7 % (50-75); Platelet Count 227 X10^3/uL (150-400); Red Cell Distribution Width 13.7 % (11.6-14.8); White Blood Cell Count 5.8 X10^3/uL (4.5-11.0)
[2022-10-21 08:09] LABS: Alanine Aminotransferase 22 IU/L (<50); Albumin 4.2 g/dL (3.5-5.0); Albumin Globulin Ratio 1.4 (1.0-2.8); Alkaline Phosphatase 100 U/L (38-126); Aspartate Aminotransferase 24 IU/L (17-59); BUN Creatinine Ratio 20.2 (6-22); Bilirubin Total 0.7 mg/dL (0.2-1.3); Blood Urea Nitrogen 18 mg/dL (9-20); Calcium 8.9 mg/dL (8.4-10.2); Carbon Dioxide 28 mmol/L (22-32); Chloride 103 mmol/L (98-107); Creatine Kinase 41 U/L (55-170); Estimated Glomerular Filt Rate > 60 mL/min (>60); Globulin 3.1 g/dL (1.7-4.1); Glucose 87 mg/dL (80-110); HEMOLYSIS < 15 (0-50); Potassium 3.6 mmol/L (3.4-5.1); Sodium 139 mmol/L (137-145); Total Protein 7.3 g/dL (6.3-8.2)
[2022-10-21 08:14] LABS: INR 1.1 (0.9-1.3); Prothrombin Time 12.6 SECONDS (10.1-12.7)
[2022-10-21 08:17] LABS: PTT Partial Thromboplastin Tim 29 SECONDS (26-36)
[2022-10-21 08:21] LABS: Troponin I < 0.012 ng/mL (0.01-0.034)
[2022-10-21 08:30] VITALS: PULSE 47; RESP 18; O2SAT 100
[2022-10-21 09:00] VITALS: BP 172/69; PULSE 54; RESP 22; O2SAT 97
== END 2022-10-21 09:14 | disposition home or self-care (01) ==
PROVIDERS: Emergency Provider Emergency Medicine; PCP Family Medicine
DX: R20.0 Anesthesia of skin (principal); R07.9 Chest pain, unspecified
CPT/HCPCS: 36415; 70450; 80053; 82550; 82962; 84484; 85025; 85610; 85730; 93005; 99284

== ENCOUNTER → 2025-03-20 07:56 | Outpatient (CLI) | payer MEDICARE, OTHER, SELFPAY ==
--- NOTE | 2025-03-20 07:59 | DI.RAD.S_ITS ---
PROCEDURE: XR FINGER LT MIN 2V INDICATIONS: possible fb in finger TECHNIQUE: AP hand, 2 views of the 2nd finger(s) acquired. COMPARISON: None. FINDINGS: Bones: No fractures or dislocations. 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 No suspicious bony lesions. Soft tissues: Linear radiodensity in soft tissue over ulnar aspect of 2nd digit at the level of 2nd distal phalangeal base deep to the area of skin wound likely represent linear foreign body. No other radiopaque foreign body is seen. IMPRESSION: No 2nd finger fracture or dislocation. 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 Suggestion of linear foreign body in soft tissue over ulnar aspect of distal 2nd finger deep to the skin wound. Dictated by: Cricket Chambers M.D. on 03/20/2025 at 15:39 Approved by: Cricket Chambers M.D. on 03/20/2025 at 15:47
== END ==
PROVIDERS: PCP Family Medicine; Referring Provider Family Medicine; Visit Provider Nurse Practitioner Family
DX: R58 Hemorrhage, not elsewhere classified (principal); M19.042 Primary osteoarthritis, left hand; S61.201A Unspecified open wound of left index finger without damage to nail, initial encounter
CPT/HCPCS: 73140

== ENCOUNTER 2025-03-25 09:40 | Emergency (ER) | payer MEDICARE, OTHER, SELFPAY ==
[2025-03-25 09:53] VITALS: BP 157/68; PULSE 68; RESP 20; TEMP 37; O2SAT 97; BMI 25.8
--- NOTE | 2025-03-25 10:07 | ED.WOUNDLAC ---
HPI - Wound/Laceration General Chief Complaint: Wound/Laceration Stated Complaint: Thorn in finger Time Seen by Provider: 03/25/25 09:54 Source: patient Mode of arrival: Ambulatory History of Present Illness HPI narrative: 79-year-old gentleman who complains that he got a thorn stuck in his index finger, seemed to become infected, he was seen urgent care, instructed follow up with surgery. Comes in today because the wound is continuing to bleed. The bleeding is controlled with a small Band-Aid. No fevers, chills, increased swelling no lymphangitis. Related Data Home Medications ?Medication ?Instructions ?Recorded ?Confirmed CA PANTOTHENATE/FOLIC ACID/VIT 1 tab PO QDAY ##0 10/27/12 03/20/25 (MULTIVITAMIN) Fish Oil 1,000 mg PO QDAY ##0 10/27/12 03/20/25 amlodipine 10 mg-benazepril 20 mg 1 cap PO DAILY 09/17/23 03/20/25 capsule aspirin 81 mg tablet,delayed 81 mg PO DAILY 09/17/23 03/20/25 release clindamycin phosphate 1 % topical topical 09/17/23 03/20/25 solution lisinopril 2.5 mg tablet 2.5 mg PO DAILY 10/25/24 03/20/25 magnesium aspart,citrate,oxide mg PO 10/25/24 03/20/25 multivitamin (Daily Multi-Vitamin 1 tab PO DAILY 10/25/24 03/20/25 tablet) Previous Rx's ?Medication ?Instructions ?Recorded tamsulosin 0.4 mg capsule 0.4 mg PO DAILY #90 caps 01/01/25 sulfamethoxazole 800 1 tab PO BID #10 tabs 03/25/25 mg-trimethoprim 160 mg tablet (Bactrim DS) Allergies Allergy/AdvReac Type Severity Reaction Status Date / Time No Known Drug Allergies Allergy Verified 03/25/25 09:53 Review of Systems Review of Systems Narrative: Pertinent positive and negative findings as per HPI Patient History Social History marital status: number of children: 2 Tobacco: How many years used: 30 alcohol intake: former caffeine: No Smoking Status: Former smoker alcohol intake frequency: 0-2 drinks per day Exam Initial Vital Signs Initial Vital Signs: Vital Signs Temperature 98.6 F 03/25/25 09:53 Pulse Rate 68 03/25/25 09:53 Respiratory Rate 20 03/25/25 09:53 Blood Pressure 157/68 H 03/25/25 09:53 Pulse Oximetry 97 03/25/25 09:53 Oxygen Delivery Method Room Air 03/25/25 09:53 General: Alert appropriate in no acute distress Respiratory: Able to speak in full sentences, no obvious respiratory distress Skin: No obvious rashes, warm and dry Neurologic: Grossly intact no obvious asymmetries or abnormalities Psych: appropriate insight and affect, cooperative Left index finger has 1 cm exophytic lesion that is still slightly bleeding, is tender to the touch. No surrounding tenderness to the pad of the finger no erythema to the pad of the finger and no lymphangitic streaking Course Vital Signs Vital signs: Vital Signs - 8 hr 03/25/25 09:53 Temperature 98.6 F Pulse Rate 68 Respiratory Rate 20 Blood Pressure 157/68 H Pulse Oximetry 97 Oxygen Delivery Method Room Air MDM - Wound/Laceration MDM Narrative Medical decision making narrative: 79-year-old gentleman with nonhealing wound on the distal portion his left index finger. He states he has a thorn stuck underneath it. At this time, has been present for almost a month. He was seen in urgent care on March 20. Imaging suggested linear foreign body in the soft tissue in the area of concern. He was given a course of cephalexin and recommended general surgery follow up. He comes into the ER today for treatment. Pictures of the wound are shared with , orthopedic and hand surgeon. This is not an acute emergency and Dr. Carrillo will plan on seeing him early this week as an outpatient in the office. Did recommend antibiotics and patient will be prescribed 5 days of Bactrim. There was no indication for further treatment or hospitalization at this time. He is safe for discharge Discharge Plan Departure Patient Disposition: Home Clinical Impression: Acute foreign body of index finger Activity Restrictions/Additional Instructions: Thank you for coming in today I shared the pictures of this wound with Dr. Carrillo who is our orthopedic surgeon on-call and is also a hand specialist surgeon. In looking at the x-ray that was done in urgent care on the , it does look like there is a splinter of some sort underneath this. When it has been present for over a month, removal of these foreign bodies can be a bit tricky particularly on the tip of your finger. Dr. Carrillo has asked that I start you on antibiotics, I have sent a prescription [facility] [place] for you to continuous pickling line pickler today You will need to follow up with Dr. Carrillo, who works at [facility], the phone number is [phone]. Please call their office on Wednesday and let them know that you were seen in the emergency department, the emergency department doctor spoke with Dr. Carrillo and Dr. Carrillo wanted you to be seen this week Prescriptions: New sulfamethoxazole-trimethoprim [Bactrim DS] 800-160 mg tablet 1 tab PO BID Qty: 10 0RF No Action amlodipine-benazepril 10-20 mg capsule 1 cap PO DAILY clindamycin phosphate 1 % solution topical aspirin 81 mg tablet,delayed release (DR/EC) 81 mg PO DAILY CA PANTOTHENATE/FOLIC ACID/VIT (MULTIVITAMIN) 1 tab PO QDAY Qty: 0 Fish Oil 1,000 mg PO QDAY Qty: 0 lisinopril 2.5 mg tablet 2.5 mg PO DAILY multivitamin [Daily Multi-Vitamin] Tablet 1 tab PO DAILY magnesium aspart,citrate,oxide 400 mg magnesium capsule PO tamsulosin 0.4 mg capsule 0.4 mg PO DAILY Qty: 90 3RF Referrals: Zack Vickers DO [Primary Care Provider, Family Practice] Stand Alone Forms: Patient Portal/API
== END 2025-03-25 10:36 | disposition home or self-care (01) ==
PROVIDERS: Emergency Provider Emergency Medicine; PCP Family Medicine
DX: S60.451A Superficial foreign body of left index finger, initial encounter (principal); W45.8XXA Other foreign body or object entering through skin, initial encounter
CPT/HCPCS: 99281